=== PATIENT | female | born 1985 | race Caucasian/White ===

== ENCOUNTER 2021-11-22 15:35 | Emergency (ER) | payer BC, MEDICAID ==
[~2021-11-22] VITALS: Ht 157.5 cm; Wt 47.7 kg
[~2021-11-22 15:35] MED LIST: NO HOME MEDS
[2021-11-22 16:27] VITALS: BP 125/83
[2021-11-22] MEDS ORDERED: LIDOcaine 1% W/epiNEPHrine 1:200,000 10ml vial IJ ONE (17:10)
[2021-11-22] MEDS ORDERED: TETanus/Pertussis (Acell)/Diphther VAC/PF (Tdap-Adult) 0.5ml syringe IMVAC ONE (17:10)
[2021-11-22] MEDS ORDERED: LIDOcaine 1% W/epiNEPHrine 1:100,000 20ml vial IJ ONE (17:20)
[2021-11-22] MEDS ORDERED: HYDR-3972 PO ×2 (18:23→19:23)
[2021-11-22] MEDS ORDERED: SULF1TAB49 PO ×2 (18:23→19:23)
== END 2021-11-22 20:06 | disposition home or self-care (01) ==
LOC: ER 15:36
DX: L02.416 Cutaneous abscess of left lower limb (principal)
CPT/HCPCS: 10060; 87070; 87077; 87186; 90471; 90715; 99283; A6449

== ENCOUNTER 2021-11-26 10:45 | Emergency (ER) | payer BC ==
[~2021-11-26] VITALS: Ht 157.5 cm; Wt 50.0 kg
[~2021-11-26 10:45] MED LIST changes: +HYDR-3972 PO; +SULF1TAB49 PO
[2021-11-26 10:48] VITALS: BP 111/65
== END 2021-11-26 13:05 | disposition home or self-care (01) ==
LOC: ER 10:46
DX: L02.416 Cutaneous abscess of left lower limb (principal); Z79.899 Other long term (current) drug therapy
CPT/HCPCS: 99281

== ENCOUNTER 2022-08-23 18:37 | Emergency (ER) | payer BC, MEDICAID ==
[~2022-08-23] VITALS: Ht 157.5 cm; Wt 52.3 kg
[~2022-08-23 18:37] MED LIST changes: -HYDR-3972 PO; -SULF1TAB49 PO
[2022-08-23 18:46] VITALS: BP 111/76
[2022-08-23] MEDS ORDERED: sulfamethoxazole/trimethoprim DS (800/160mg) tablet PO ONE (19:10)
[2022-08-23] MEDS ORDERED: cephalexin 500mg capsule PO ONE (19:10)
[2022-08-23] MEDS ORDERED: LIDOcaine 1% W/epiNEPHrine 1:100,000 20ml vial IJ ONE (19:10)
[2022-08-23] MEDS ORDERED: TETanus/Pertussis (Acell)/Diphther VAC/PF (Tdap-Adult) 0.5ml syringe IMVAC ONE (19:10)
[2022-08-23] MEDS ORDERED: CEPH250T PO (19:34)
[2022-08-23] MEDS ORDERED: SULF1TAB45 PO (19:34)
== END 2022-08-23 19:54 | disposition home or self-care (01) ==
LOC: ER 18:38
DX: L02.01 Cutaneous abscess of face (principal)
CPT/HCPCS: 10060; 90471; 90715; 99283; J3490; A6449